=== PATIENT | male | born 1940 | race Caucasian/White ===

== ENCOUNTER 2025-01-31 21:55 | Emergency (ER) | payer MEDICARE ==
[~2025-01-31] VITALS: Ht 180.3 cm; Wt 75.0 kg
[2025-01-31 21:58] VITALS: BP 144/80; PULSE 88; RESP 18; TEMP 98.9; O2SAT 96
--- NOTE | 2025-01-31 22:45 | Physician Documentation ---
History of Present Illness ~ Chief Complaint: Rash Stated Complaint: PAIN IN HANDS Time Seen by MD: 22:19 HPI 84-year-old male presents to the ED with a complaint of a viral exanthem. States he was already seeing an urgent care and diagnosed with a viral rash. Viral dermatitis. He states this has been going on for weekend and is beginning to resolve. Also complains of bilateral upper extremity numbness and tingling. Upon further interviewing his and he reports that he often falls asleep with his chin on his chest lead into ongoing neck pain. As he has done this hold his whole life without any problems. Denies any history of neck injury. Day of Onset: Jan 31, 2025 Medication Reconciliation Allergies: Coded Allergies: No Known Allergies (Unverified , 01/31/25) Review of Systems All Other Systems at this time: Reviewed and Negative ROS As stated above in the HPI, otherwise all systems are reviewed and negative. Physical Exam Vital Signs: Temperature: 98.9, Source: Oral, Heart Rate: 88, Respiratory Rate: 18, BP: 144/80, Pulse Oximetry: 96, Weight: 75.000 Physical Exam General: Alert, no apparent distress. Neck: Full range of motion. Developing kyphosis. trunk, dispersed and sporadic red rash on chest and trunk Extremities: Normal range of motion, no deformity. Negative Phalen's negative Tinel's test Neurologic: Oriented x4. Psychiatric: Normal mood and affect. Skin: Normal color, warm and dry. No edema, no ecchymosis. Progress Results/Orders Results/Orders Orders - FABIEN DONALD ENERGY ANALYST Cervical Spine [facility] (01/31/25 22:45) Completed Orders - FABIEN DONALD ENERGY ANALYST Cervical Spine [employer]t (01/31/25 22:45) Vital Signs 01/31/25 21:58 Temp 98.9 Pulse 88 Resp 18 B/P (MAP) 144/80 Pulse Ox 96 Medical Decision Making Findings ! was intitially concerned about carpal tunnel syndrome based on patient's increased numbness and tingling in his hands. However his negative exam indicated further evaluation was necessary. With his history of getting an awkward positions while sleeping I am suspecting some sort of neuropathy or nerve impingement in his cervical region. Discussed this with him and the patient was moderately resistant to accept this notion. I also said that the viral exanthem could have caused increased inflammation which would exacerbate his numbness and tingling for Ultimately I suggested that he follow up with the urgent care was primary care to obtain a referral to physical therapy and to request an MRI to evaluate for any internal derangement I explained to him that his viral exanthem is going to resolve on his own Based on my interpretation of the patient's x-ray I suspect cervical degeneration, calcification and likely nerve impingement Differential Dx:Considerations: Include: Abscess, AIDS/HIV, Anthrax (cutaneous), Atopic dermatitis, Candidiasis, Contact dermatitis, Drug reaction, Erythema multiforme, Erysipelas, Gangrene, Herpes zoster, Herpes simplex, Hidradenitis suppurativa, Impetigo, Intertrigo, Lymes disease, Molluscum contagiosum, Osteomyelitis, Pediculosis, Pityriasis rosea, Psoriaisis, RMSF, Rosacea, Scabies, Scarlet fever, Tinea, Urticaria, Varicella, Viral exanthema, Other Departure Disposition: 01 HOME / SELF CARE / HOMELESS Impression: Primary Impression: Skin irritation Additional Impression: Neuropathy Discharge Instructions: Neck Exercises Additional Instructions: Follow up with the primary care or urgent care to obtain a referral for physical therapy and further imaging of your neck. This will include to MRI. Referrals: NO PRIMARY CARE PROVIDER (PCP) Signature Scribe Signature: f Attestation: Scribed for Fabien Donald Manager Finance by Fabien Baez NP . 01/31/25 23:40 FABIEN DONALD NP Jan 31, 2025 22:45
--- NOTE | 2025-01-31 23:49 | RADIOLOGY REPORT ---
EXAM: DI CERVICAL SPINE CMPLT INDICATION: pain COMPARISON: None TECHNIQUE: 4 views of the cervical spine were obtained. FINDINGS/IMPRESSION: No acute displaced fracture. Degenerative changes of the cervical spine characterized by endplate os teophytosis and intervertebral disc space narrowing. No prevertebral swelling. The odontoid appears i ntact. If clinical symptoms persist, CT may be beneficial in further assessment.
== END 2025-01-31 23:41 | disposition home or self-care (01) ==
LOC: ER 21:57
DX: L24.9 Irritant contact dermatitis, unspecified cause (principal); G62.9 Polyneuropathy, unspecified
CPT/HCPCS: 72050; 99283